=== PATIENT | male | born 1970 | race Caucasian/White ===

== ENCOUNTER 2025-02-17 21:37 | Emergency (ER) | payer SELFPAY ==
[2025-02-17 21:38] VITALS: BMI 31.3
[2025-02-17 22:15] VITALS: BP 153/86; PULSE 83; RESP 18; TEMP 37; O2SAT 95
[2025-02-17] MEDS: DIPHTH,PERTUSS(ACELL),TET VAC 0.5 ML SYR- ADULT IMi (22:39)
[2025-02-17] MEDS: AMOXICILLIN/POT CLAV 875 TABLET 1 TAB PO (22:40)
--- NOTE | 2025-02-18 04:41 | PD.EDANIML ---
ED Animal Bite RME/HPI General Chief Complaint: Animal Bite Stated Complaint: DOG BITE L ANKLE Time Seen by Provider: 02/17/25 22:26 Arrival date/time: 02/17/25 21:37 54M with no significant PMH presents to ED with L ankle dog bite from a neighbor's dog. Patient has not had a tetanus shot in the past 5 years. Limitations: no limitations Related Data Previous Rx's ?Medication ?Instructions ?Recorded amoxicillin 875 mg-potassium 1 tab PO BID 5 days #10 tabs 02/17/25 clavulanate 125 mg tablet Allergies Allergy/AdvReac Type Severity Reaction Status Date / Time No Known Allergies Allergy Verified 02/17/25 21:45 Review of Systems Review of Systems Systems Reviewed: All systems reviewed, normal except as documented Constitutional Constitutional: Reports system reviewed and no additional complaints, except as documented, Denies fever(s) and Denies headache(s) ENT Ears, Nose, Mouth, and Throat: Denies disequilibrium and Denies headache(s) Cardiovascular Cardiovascular: Reports system reviewed and no additional complaints, except as documented, Denies chest pain and Denies dyspnea Respiratory Respiratory: Reports system reviewed and no additional complaints, except as documented, Denies cough and Denies dyspnea Gastrointestinal Gastrointestinal: Reports system reviewed and no additional complaints, except as documented, Denies abdominal pain, Denies nausea and Denies vomiting Integumentary/Breasts Skin/Breast: Reports as per HPI and Reports skin pain Neurologic Neurologic: Reports system reviewed and no additional complaints, except as documented, Denies confusion, Denies disequilibrium and Denies headache(s) Psychiatric Psychiatric: Denies confusion Past Medical History Social History SMOKING STATUS: Never smoker ED Exam General Limitations: Present no limitations General appearance: Present alert and in no apparent distress Head Head exam: Present atraumatic Eye Eye exam: Present normal appearance, PERRL and EOMI ENT ENT exam: Present normal exam, normal oropharynx and mucous membranes moist Neck Neck exam: Present normal inspection, full ROM and trachea midline Chest Chest inspection: Present normal inspection and symmetric chest wall rise Respiratory Respiratory exam: Present normal lung sounds bilaterally Cardiovascular Cardiovascular exam: Present regular rate, normal rhythm and normal heart sounds Abdominal Exam Abdominal exam: Present soft and normal bowel sounds Extremities Exam Extremities exam: Present full ROM Expanded Lower Extremity Exam Ankle exam: Present full ROM and laceration (L dog bite) Back Exam Back exam: Present normal inspection and full ROM Neurological Exam Neurological exam: Present alert, oriented X3 and CN II-XII intact Psychiatric Psychiatric exam: Present normal affect and normal mood Skin Skin exam: Present warm, dry, intact and normal color Course Quality Measures none Orders Category Date Time Status Wound Care [Wound Care] NOW Care 02/17/25 22:27 Completed Amoxicillin/Pot Clav 875 [Augmentin 875] Med 02/17/25 22:27 Discontinued 1 tab PO X1 ONE TET,DIP/PERT AC (Adult)-Tdap [Boostrix Adult (Tdap) Med 02/17/25 22:27 Discontinued Vacc] 0.5 ml IMI .ONCE ONE Vital Signs Vital signs: Vital Signs Temperature 98.6 F 02/17/25 22:15 Pulse Rate 83 02/17/25 22:15 Respiratory Rate 18 02/17/25 22:15 Blood Pressure 153/86 H 02/17/25 22:15 Pulse Oximetry (%) 95 02/17/25 22:15 Oxygen Delivery Method Room Air 02/17/25 22:15 O2 at 95% on RA and WNLs Animal Bite MDM Narrative MDM Narrative:: 54M with no significant PMH presents to ED with L ankle dog bite from a neighbor's dog. Patient has not had a tetanus shot in the past 5 years. Physical exam reveals L ankle dog bite. Patient is afebrile, calm, and alert. Wound cleaned/irrigated and bandaged. Tdap and ABX prophylaxis given. Patient data External records reviewed:: None Clinical information provided by:: patient Social determinants that could affect healthcare access:: none Patient has the following chronic illnesses:: none How is presenting disease/condition affected by chronic disease/condition?: no chronic disease Evaluation data The following diagnostics were reviewed and interpreted by me:: other (specify) (none) Lab and/or radiology exams considered but not ordered:: not ordered Interpretation Summary: n/a Medications / Prescriptions Medications or Prescriptions considered but not ordered:: ordered Medication administrations:: Medication Administration History Discontinued Medications Amoxicillin/Clavulanate Potassium (Amoxicillin/Pot Clav 875 Tablet) 1 tab PO X1 ONE Stop: 02/17/25 22:28 Last Admin: 02/17/25 22:40 Dose: 1 tab Documented By: OA Diphtheria/Tetanus/Acell Pertussis (Diphth,Pertuss(Acell),Tet Vac 0.5 Ml Syr- Adult) 0.5 ml IMi .ONCE ONE Stop: 02/17/25 22:28 Last Admin: 02/17/25 22:39 Dose: 0.5 ml Documented By: OA above Consultations Consultation(s) initiated? (list below): No Diagnosis Differential diagnosis animal bite: bite by animal, cat bite, dog bite and rabies contact Most likely diagnosis given after review of the tests above:: dog bite Admission Indicated Admission indicated?: not indicated Admission Request Was there a request for admission?: No Disposition Plan Disposition Plan: Discharge Discharge Attestation Discharge Attestation: The patient and all family members were given an opportunity to ask questions and understood the discharge instructions. Discharge instructions specifically effects, indications for sooner follow up or return to the emergency department, and the expected course of current diagnosis. Patient condition: Stable Discharge Plan Plan Patient Disposition: HOME (Self Care) Discharge Disposition comment: Stable Prescriptions/Referrals Prescriptions/Med Rec: New amoxicillin-pot clavulanate 875-125 mg tablet 1 tab PO BID 5 Days Qty: 10 0RF Problem List Clinical Impression: Dog bite Patient/Caregiver Discharge Instructions Education Materials: ED Dog Bite Additional Instructions: Please follow-up with PCP within 24-48 hours and return immediately if symptoms worsen. Print Language: Monegasque Stand Alone Forms: Patient Portal Info Letter JOHNNA/NANCY Supervising Physician NERI Supervising Physician: Dr. Johnston
== END 2025-02-17 22:56 | disposition home or self-care (01) ==
LOC: SERX 23:04
PROVIDERS: Emergency Provider Emergency Medicine
DX: S91.052A Open bite, left ankle, initial encounter (principal); W54.0XXA Bitten by dog, initial encounter; Z23 Encounter for immunization
CPT/HCPCS: 90471; 90715; 99283; A9270